=== PATIENT | male | born 1975 | race Caucasian/White ===

== ENCOUNTER 2017-12-19 12:32 | Inpatient (IN) | payer OTHER ==
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
[2017-12-19] MEDS ORDERED: HYDROmorphONE/DILAUDID 2 MG/ML INJ IVP ONE ×2 (13:51→14:16)
[2017-12-19] MEDS ORDERED: VANCOMYCIN HCL/NORMAL SALINE 250 ML IV ONE (13:56)
[2017-12-19] MEDS ORDERED: HYDROmorphONE/DILAUDID 1 MG/ML INJ IVP ONE ×2 (13:57→15:39)
[2017-12-19] MEDS ORDERED: VANCOMYCIN 1 GM/NS 250 ML BAG IV ONE (14:11)
[2017-12-19 14:44] LABS: PLATELET COUNT 224 10^3/uL (150-400)
[2017-12-19] MEDS ORDERED: HYDROmorphONE/DILAUDID 1 MG/ML INJ IVP PRN ×2 (15:39→17:04)
[2017-12-19] MEDS ORDERED: ONDANSETRON 4 MG/2 ML VIAL IVP PRN ×2 (15:39→17:04)
[2017-12-19] MEDS ORDERED: ACETAMINOPHEN 325 MG TAB PO PRN (15:39)
[2017-12-19] MEDS ORDERED: ONDANSETRON DISINTEGRATING 4 MG TAB PO PRN (15:39)
[2017-12-19] MEDS ORDERED: NS 1,000 ML IV SCH (15:45)
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
[2017-12-19] MEDS ORDERED: MIDAZOLAM 2 MG/2 ML VIAL ONE (17:03)
[2017-12-19] MEDS ORDERED: fentaNYL 100 MCG/2 ML INJ IVP PRN (17:04)
[2017-12-19] MEDS ORDERED: DEXAMETHASONE 4 MG/ML VIAL IVP PRN (17:04)
[2017-12-19] MEDS ORDERED: NALOXONE HCL 0.4 MG/ML INJ IVP PRN (17:04)
[2017-12-19] MEDS ORDERED: HYDROCODONE/APAP 5/325 TAB PO PRN (17:04)
[2017-12-19] MEDS ORDERED: ALBUTEROL 3 ML DEYVIAL IH PRN (17:04)
[2017-12-19] MEDS ORDERED: oxyCODONE IR 5 MG TAB PO PRN (17:04)
--- NOTE | 2017-12-19 17:04 | PDANEPAE ---
ANE History of Present Illness here for L elbow I and D ANE Past Medical History - Cardiovascular History Hx Hypertension: No Hx Arrhythmias: No Hx Chest Pain: No Hx Coronary Artery / Peripheral Vascular Disease: No Hx CHF / Valvular Disease: No Hx Palpitations: No - Pulmonary History Hx COPD: No Hx Asthma/Reactive Airway Disease: No Hx Recent Upper Respiratory Infection: No Hx Oxygen in Use at Home: No Hx Sleep Apnea: No - Endocrine History Hx Diabetes: No Hypothyroid: No Hyperthyroid: No Obesity: no ANE Review of Systems Review of systems is: negative Review of Systems: - Exercise capacity Exercise capacity: >=4 METS ANE Patient History - Allergies Allergies/Adverse Reactions: cephalexin monohydrate [From [employer]] Allergy (Verified 12/19/17 12:39) Hives - Home Medications Home medications: home medication list seen and reviewed Home Medications: Amphet Asp and D/Amphet [Adderall 20 mg (*)] 20 mg PO BID 12/19/17 [Last Taken 12/19/17] Ibuprofen [Motrin (*)] 600 mg PO Q8H PRN 12/19/17 [Last Taken Unknown] - NPO status NPO Status: no food or drink >8 hours NPO Since - Liquids (Date): 12/19/17 NPO Since - Liquids (Time): 09:30 NPO Since - Solids (Date): 12/19/17 NPO Since - Solids (Time): 09:30 - Anes Hx Anes Hx: no prior problems - Smoking Hx Smoking Status: Never smoked ANE Labs/Vital Signs - Labs Result Diagrams: 12/19/17 13:48 12/19/17 13:45 - Vital Signs Vital Signs: reviewed preoperatively; see RN documention for details Blood Pressure: 152/78 Heart Rate: 82 Respiratory Rate: 18 O2 Sat (%): 98 Height: 193.04 cm Weight: 88.451 kg ANE Physical Exam - Airway Neck exam: FROM Mallampati Score: Class 1 - Pulmonary Pulmonary: no respiratory distress - Cardiovascular Cardiovascular: regular rate and rhythym - ASA Status ASA Status: I ANE Anesthesia Plan Anesthesia Plan: GA w LMA
[2017-12-19] MEDS ORDERED: fentaNYL 100 MCG/2 ML INJ ONE ×3 (17:07→20:11)
[2017-12-19] MEDS ORDERED: PROPOFOL/EMULSION 500 MG/50 ML BOTTLE IV ONE (17:08)
[2017-12-19] MEDS: MIDAZOLAM 2 MG/2 ML VIAL IVP ONE ×2 (17:14→17:56)
[2017-12-19] MEDS: BUPIVACAINE/EPI 0.5% 30 ML SDV ONE ×2 (17:56→18:15)
[2017-12-19] MEDS: ceFAZolin 1 GM/5 ML SYR ONE ×2 (17:56→18:15)
--- NOTE | 2017-12-19 20:13 | POSTANESTH ---
Post Anesthetic Evaluation Cardiovascular Status: Normal, Stable Respiratory Status: Normal, Stable Level of Consciousness/Mental Status: Can Participate in Eval Pain Control: Inadeq, Add Tx Required Nausea/Vomiting Control: Adequate, Prn Tx Ordered Complications Possibly Related to Anesthesia: None Noted
[2017-12-19] MEDS ORDERED: CYCLOBENZAPRINE 10 MG TAB PO PRN (20:15)
[2017-12-19] MEDS ORDERED: PROMETHAZINE HCL 25 MG/ML INJ IVP PRN (20:15)
[2017-12-19] MEDS ORDERED: METOCLOPRAMIDE 10 MG/2 ML VIAL IVP PRN (20:15)
[2017-12-19] MEDS ORDERED: DIPHENOXYLATE/ATROPINE LOMOTIL 1 TAB PO PRN (20:15)
[2017-12-19] MEDS ORDERED: TEMAZEPAM 15 MG CAP PO PRN (20:15)
[2017-12-19] MEDS ORDERED: diphenhydrAMINE 25 MG CAP PO PRN (20:15)
[2017-12-19] MEDS ORDERED: traMADol 50 MG TAB PO PRN (20:15)
[2017-12-19] MEDS ORDERED: LR 1,000 ML IV SCH (20:30)
--- NOTE | 2017-12-19 20:34 | GOP ---
[f rep st] OPERATIVE REPORT DATE OF OPERATION: 12/19/2017 SURGEON: Frankie Green MD ANESTHESIA: General. PREOPERATIVE DIAGNOSIS: Septic left elbow with infection around previous existing hardware. POSTOPERATIVE DIAGNOSIS: Septic left elbow with infection around previous existing hardware. PROCEDURE PERFORMED: 1. Irrigation and debridement, left elbow. 2. Removal of hardware (deep left elbow). FINDINGS: DESCRIPTION OF PROCEDURE: The patient was taken to the operating room and administered general anest hesia, placed in the supine position. The left upper extremity was prepped and draped in normal ster ile fashion. The arm was initially exsanguinated. An incision was made down through dermal subcutan eous tissues. Blunt and sharp dissection was performed down to the level of the plate. There was pu rulent fluid around the plate. This was cultured. The tourniquet was then let down as we infused 1 g IV vancomycin after cultures were taken. The plate was attempted to be removed with the small fragment screwdriver. One of the screws broke o ff. Two of the screws were able to be extracted. Three of the remaining screws had to have their he ads ground off to remove the plate. We passed trephines around the proximal screws and attempted to remove them using the screw extraction device. Unfortunately, we were unsuccessful. We broke severa l tongs on the screw extractor. Some of these were able to extract. 2 small fragments were left in place. Copious irrigation was performed with 10,000 cc of normal saline with Ancef solution. The so ft tissues were debrided where there was metal debris. The more distal screw was able to be trephine d around it and removed. The 3 proximal screws were not trephined around as we felt this would signi ficantly compromise the integrity of the bone. The irrigation was again performed with normal saline . Closure was performed with a 3-0 Monocryl in the fascial and subcutaneous tissues, followed by ezekiel sure of the dermis with a 3-0 Ethibond. A sterile compression dressing was applied followed by a pos terior splint. The patient tolerated the procedure well, was transferred back to recovery room. Thi s was an extremely complicated procedure because of the broken hardware and therefore a qualifier is made for time spent in difficulty of the case. COMPLICATIONS: None. /[id number]/MODL
[2017-12-19] MEDS ORDERED: HYDROmorphONE/DILAUDID 2 MG/ML INJ ONE (20:36)
[2017-12-19] MEDS: HYDROmorphONE/DILAUDID 2 MG/ML INJ IVP PRN ×3 (20:41→21:02)
--- NOTE | 2017-12-19 20:54 | GCON ---
[f rep st] CONSULTATION ORTHOPEDIC CONSULTATION DATE OF CONSULTATION: 12/19/2017 REASON FOR CONSULTATION: Left elbow infection around pre existing implant applied to proximal ulna. HISTORY OF PRESENT ILLNESS: Patient is a 42-year-old gentleman who has had severe pain and swelling in his left upper extremity. The area of most concentration is the region around the olecranon. He hit the back of his elbow on a chair a couple days ago and started swelling and becoming significantl y more tender. He has had 15 surgeries in the left upper extremity over the last 10 years. He has b een complaining of severe pain over the last 48 hours. No significant fevers or chills. No other ar eas of infection. X-ray of the left elbow shows a pre-existing plate with 7 screws. The plate was a pplied for a previous olecranon fracture. He has had multiple previous surgeries in the left upper e xtremity with also a history of MRSA infection. SOCIAL HISTORY: , lives in [place]. FAMILY HISTORY: Noncontributory. ALLERGIES: Cephalexin monohydrate, develops hives. HOME MEDICATIONS: Ibuprofen, Adderall. HABITS: Smoking history none. Alcohol use minimal. REVIEW OF SYSTEMS: Negative. PHYSICAL EXAM: GENERAL APPEARANCE: Patient alert, oriented, and cooperative with exam. HEENT: Wit hin normal limits. CHEST: Clear to auscultation. CARDIAC: Regular rate, rhythm. ABDOMEN: Nonten augustine. LEFT UPPER EXTREMITY: Pulses 2+ radial, 1+ ulnar. There are previous areas of scarring from m ultiple previous surgeries in the left forearm and elbow area. There are areas of skin grafting arou nd the thumb and forearm that are well healed. There is an appearance of a pedicle flap on the dorsa l forearm. Primary exam left elbow shows circumferential swelling. There is a point area of tendern ess and redness over the area of the proximal olecranon hardware. No drainage at this point. The sk in is warm. LABORATORY DATA: On admission, white count elevated 11.11, hematocrit 43.7. ASSESSMENT: 1. Septic left elbow with concentration around the area of the left olecranon where there was previo us hardware. 2. Elevated white blood cell count (leukocytosis). PLAN: The patient will undergo removal of hardware, left elbow. Will undergo I and D of the olecran on bursa tissue around the hardware. Cultures will be taken prior to initiating vancomycin IV. Vanc omycin was started in the OR after cultures were taken. He will require admission for IV antibiotics . Infectious disease consultation will be requested. /[id number]/MODL
[2017-12-19] MEDS: OXYCODONE/APAP 5/325 TAB PO PRN (22:15)
[2017-12-19] MEDS: FAMOTIDINE 20 MG TAB PO SCH (22:16)
[2017-12-19] MEDS ORDERED: LORazepam 0.5 MG TAB PO PRN (23:14)
[2017-12-20] MEDS: OXYCODONE/APAP 5/325 TAB PO PRN (02:15)
[2017-12-20 05:09] LABS: PLATELET COUNT 215 10^3/uL (150-400)
[2017-12-20] MEDS ORDERED: VANCOMYCIN 1.25 GM in NS 250 ML IV SCH (06:00)
[2017-12-20] MEDS: oxyCODONE IR 5 MG TAB PO PRN ×3 (07:06→16:45)
[2017-12-20] MEDS ORDERED: ADDERALL 20 MG TAB PO SCH (09:00)
[2017-12-20] MEDS: FAMOTIDINE 20 MG TAB PO SCH (09:39)
--- NOTE | 2017-12-20 13:14 | SOAPPROG ---
SOAP Progress Note Assessment/Plan: Assessment: POD #1 Left elbow I/D and hardware removal. Doing well. Pain well controlled. I/D consulted and plan is for him to have PICC line prior to D/C. Plan: Maintain splint, NWB to LUE. PICC line per I/D. DVT prophylaxis: SCDs and DESIRAE hose. F/U in clinic in 7 days or prn concerns. Drain will be removed prior to D/C. Advised to watch for any worsening pain, swelling, change in heat/color of extremity, worsening change in ROM or strength, fever, chills and to seek immediate medical attention if seen. Patient/plan discussed with Dr. Green. Subjective: Alone in room, able to respond appropriately to questions. Pain well controlled. Denies any worsening pain, swelling, change in heat/color of extremity, worsening change in ROM or strength, fever, chills and to seek immediate medical attention if seen. Has been compliant in splint and no heavy lifting. Objective: Vital Signs Temp Pulse Resp BP Pulse Ox 37.1 C 74 16 97/52 L 95 12/20/17 08:51 12/20/17 08:51 12/20/17 08:51 12/20/17 08:51 12/20/17 08:51 Microbiology 12/19/17 17:40 Gram Stain - Final Elbow - Eswab Laboratory Results 12/20/17 04:51 12/20/17 04:51 12/19/17 12/20/17 12/21/17 05:59 05:59 05:59 Intake Total 2960 300 Output Total 300 Balance 2660 300 NAD, non-labored breathing, no diaphoresis. RRR. Afebrile. M/S: Left upper extremity in splint. Compartments soft. Drain in place. No abnormal change in heat/color of extremity noted. 1+ non-pitting edema present to right hand. DNVI b/l with gross sensation intact. No change in baseline per patient of AROM of left hand, does have previous issues with AROM due to multiple previous hand surgeries and tendon surgeries. Brisk cap refill present b/l. Labs: still pending. - Pending Discharge Pending Discharge Within 24 Hours: Yes Pending Discharge Date: 12/21/17 (Pending hospital and I/D clearance. ) Pending Discharge Time: 11:00 ICD10 Worksheet Patient Problems: Problems Problem Status Onset Olecranon bursitis of left elbow Acute
[2017-12-20] MEDS ORDERED: ALTEPLASE 2 MG VIAL IVP PRN (13:32)
[2017-12-20] MEDS ORDERED: DAPTOmycin 500 MG in NS 100 ML IV SCH (16:00)
[2017-12-20 16:43] VITALS: BP 118/72
--- NOTE | 2017-12-20 17:43 | ASMTCMCOM ---
CM Note CM Note Notes: Pt medically stable for d/c. Pt will d/c on 500 mg of dapto. Pt to go to outpatient infusion center tomorrow 12/21/17 for 09:30 appointment. Pt informed of need to check in half an hour early tomorrow. Pt is interested in home IV antibiotics; referral sent to [facility] in [employer]. Whit with [facility] to contact pt tomorrow to discuss home IV antibiotics and [facility] would [facility] with [facility] for orders. Date Signed: 12/20/2017 05:42 PM Electronically Signed By:CLAUDINE Acharya
--- NOTE | 2017-12-20 18:19 | GDS ---
[f rep st] DISCHARGE SUMMARY IN-HOSPITAL CONSULTANTS: 1. Dr. Frankie Green, Orthopedic Surgery. 2. Rajinder Us, Infectious Disease. DISCHARGE DIAGNOSIS: Septic left elbow. HISTORY OF PRESENT ILLNESS: The patient is a 42-year-old gentleman with a past medical history of pr ior MRSA infections and multiple left elbow surgeries who was camping over the weekend and sustained a fall, hitting up against his left elbow. Subsequently to this, his left elbow became painful, swol sky, and erythematous, and he presented to the [facility] Emergency Room for addition al evaluation. He was subsequently taken to the operating room for washout of the left elbow and aurelia dware removal. Unfortunately, all the hardware was unable to be removed. The patient was quite renny vated to be discharged from the hospital and we worked to make arrangements for outpatient IV antibio tics. He had a PICC line placed prior to his discharge to receive 1 dose of daptomycin and will retu rn tomorrow to the inpatient infusion center for another dose and will have followup visit in 2 days with Infectious Disease at the [facility] for review of his culture and sensitivity results and th en to make determinations on further antibiotic therapy at that time. Dr. Calvillo did talk with Dr. Bernardo rubin as well, and the plan for discharge today and recommendation for followup with Dr. Green in 1 we ek's time was made. PHYSICAL EXAMINATION: VITAL SIGNS: On day of discharge: Temperature 37.1, blood pressure 97/52, he art rate 74, respirations 16, saturating 95% on room air. GENERAL: Patient appears comfortable. He is awake, alert, conversant, in no acute distress. HEART: Regular rate and rhythm. No murmurs simona reciated. LUNGS: Clear to auscultation. Normal respiratory effort. ABDOMEN: Soft, nontender, non distended. : No Srinivasan catheter in place. EXTREMITIES: Left upper extremity bandage with Clarence wra p. No erythema spreading beyond the Clarence wrap bandage. NOTABLE STUDIES: Elbow swab preliminary reading is showing Staph aureus. Blood culture showing no g rowth at this time. White blood cell count 12, hemoglobin 12, platelets 215. Sodium 137, potassium 4.4, chloride 102, bicarb 26, BUN 12, creatinine 0.7, glucose 144. C-reactive protein is 67. X-ray of left elbow showed diffuse soft tissue swelling with no acute osseous findings. DISCHARGE MEDICATIONS: 1. Oxycodone 5-10 mg every 4 hours as needed for [id number]-[id number] pain. 2. Daptomycin 500 mg IV q.24 h. 3. Adderall 20 mg twice a day. 4. Motrin 600 mg every 8 hours as needed for pain. DISCHARGE INSTRUCTIONS: Patient will have a followup visit with [facility] in 2 days time for fol lowup on the culture sensitivity results and then to make recommendations on further IV antibiotic th erapy. A followup visit with Dr. Green is also recommended in 1 weeks time. I would also recommend a followup visit with Dr. Luis Garcia, his primary provider in 1-2 weeks' time for reassessment. 35 minutes of time dedicated to discharge efforts. /[id number]/MODL
--- NOTE | 2017-12-21 10:42 | ASDISCHSUM ---
Discharge Information Plan Status:IV ABX/Infusion Medically Cleared to Leave: Discharge Date:12/20/2017 06:40 PM CM D/C Disposition: ADT D/C Disposition:Home, Routine, Self-Care Projected Discharge Date:12/20/2017 11:00 AM Transportation at D/C: Discharge Delay Reason: Follow-Up Date:12/20/2017 11:00 AM Discharge Slot: Final Diagnosis: Placement Information Referral Type:Home Infusion Referral ID:[id number] Provider Name:[facility] Address 1:[address] Address 2: City:[place] Selection Factors: State:[place] Patient Contact Information Contact Name:KEY Relationship: Address:[address] [place] [address] City:[place] Alternate Phone: State/Zip Code:[place] [address] Email: Financial Information Financial Class:HMO and PPO Plans Primary Plan Desc:[employer]OR SCHAEFER PPO [id number] Secondary Plan Desc:ADDY MERAZ [employer] DEE-NI' Secondary Plan Number:[id number] Assessment Information LACE LACE Length of stay for Answers: 1 day current admission Acuity / Level of Answers: Yes Care: Did the patient have an inpatient admission? # of Emergency department Answers: 1-2 visits in the last 6 months Score: 5 Date Signed: 12/21/2017 10:41 AM Electronically Signed By:CLAUDINE Acharya OLIVE CM Progress Note CM Note CM Note Notes: Pt medically stable for d/c. Pt will d/c on 500 mg of dapto. Pt to go to outpatient infusion center tomorrow 12/21/17 for 09:30 appointment. Pt informed of need to check in half an hour early tomorrow. Pt is interested in home IV antibiotics; referral sent to [facility]. Whit with [facility] to contact pt tomorrow to discuss home IV antibiotics and [facility] would [facility] for orders. Date Signed: 12/20/2017 05:42 PM Electronically Signed By:CLAUDINE Acharya Intervention Information
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
== END 2017-12-20 18:40 | disposition home or self-care (01) | DRG 496 ==
LOC: F3N 21:30
PROVIDERS: ADMIT Family Medicine; ATTEND Internal Medicine
DX: T84.7XXA Infection and inflammatory reaction due to other internal orthopedic prosthetic devices, implants and grafts, initial encounter (principal); M00.822 Arthritis due to other bacteria, left elbow; B95.61 Methicillin susceptible Staphylococcus aureus infection as the cause of diseases classified elsewhere; Y79.2 Prosthetic and other implants, materials and accessory orthopedic devices associated with adverse incidents; Z86.14 Personal history of Methicillin resistant Staphylococcus aureus infection
CPT/HCPCS: 96374; 97161-GP; 97165-GO; C1751; J0878; J1170; J2250; J2704; J3010; J3370